=== PATIENT | female | born 1975 | race Caucasian/White ===

== ENCOUNTER 2021-12-18 18:19 | Emergency (ER) | payer OTHER, MEDICAID ==
[~2021-12-18] VITALS: Ht 152.4 cm; Wt 90.7 kg
[2021-12-18 18:29] VITALS: BP_SYST 123
--- NOTE | 2021-12-18 18:35 | NUR ---
BIB FAMILY WITH C/C OF PASSING OUT. PT STATED SHE HAD APPROXIMATELY 20 EPISODES OF DIARRHEA THAT STARTED THIS AM. WHILE SITTING ON TOILET PT REPORTS DIZZINESS AND SEEING BLACK AND THEN PASSED OUT, THEN PT SAT UP AGAIN AND PASSED OUT AGAIN. PT REPORTS HITTING THE FLOOR WITH HEAD. PRESENTS WITH CONTUSION TO FOREHEAD. REPORTS NAUSEA AND DIZZINESS WITHOUT EMESIS. PRESENTS WITH ABRASIONS TO BILATERAL KNEES. PT PLACED IN WAITING AREA.
--- NOTE | 2021-12-18 18:45 | NUR ---
DR. WELCH ASSESSED PT IN TRIAGE ROOM.
[2021-12-18 19:12] LABS: BASOPHILS % (AUTO) 0.3 % (0.0-2.0); EOSINOPHILS % (AUTO) 0.1 % (0.0-4.0); HEMATOCRIT 45.6 % (36-48); HEMOGLOBIN 15.5 g/dL (12.0-16.0); LYMPHOCYTES # (AUTO) 0.6 K/uL (1.0-5.5); LYMPHOCYTES % (AUTO) 5.3 % (20.5-51.5); MEAN CORPUSCULAR HEMOGLOBIN 30 pg (27-31); MEAN CORPUSCULAR HGB CONC 34 % (32-36); MEAN CORPUSCULAR VOLUME 87 fL (79.0-98.0); MONOCYTES # (AUTO) 0.4 K/uL (0.0-1.0); NEUTROPHILS # (AUTO) 9.9 K/uL (1.8-7.7); NEUTROPHILS % (AUTO) 90.3 % (40.0-70.0); PLATELET COUNT (AUTO) 347 K/uL (130-430); RED BLOOD CELL COUNT(AUTO) 5.22 MIL/uL (4.2-6.2); RED CELL DISTRIBUTION WIDTH 13.7 % (9.0-15.0); WHITE BLOOD COUNT (AUTO) 10.9 K/uL (4.8-10.8)
[2021-12-18 19:15] LABS: CALCIUM 9.4 mg/dL (8.4-11.0); CREATININE 0.96 mg/dL (0.55-1.30); POTASSIUM 4.2 mmol/L (3.5-5.1)
[2021-12-18 19:21] LABS: ALBUMIN 4.1 g/dL (3.4-4.8); TOTAL BILIRUBIN 0.7 mg/dL (0.0-1.0)
[2021-12-18] MEDS ORDERED: NACL 0.9% 1,000 ML IV ONE (19:30)
[2021-12-18] MEDS ORDERED: DICY10CA13 PO (23:22)
--- NOTE | 2021-12-18 23:28 | NUR ---
Patient given written and verbal discharge instructions and verbalizes understanding. ER MD discussed with patient the results and treatment provided. Patient in stable condition. ID arm band removed. IV catheter removed intact and dressing applied, no active bleeding. Rx of DICOCLOMINE given. Patient educated on pain management and to follow up with PMD. Pain Scale . Opportunity for questions provided and answered. Medication side effect fact sheet provided.
== END 2021-12-18 23:28 | disposition home or self-care (01) ==
LOC: SED 18:19
DX: R55 Syncope and collapse (principal); R19.7 Diarrhea, unspecified; Z79.899 Other long term (current) drug therapy
CPT/HCPCS: 36415; 70450-TC; 73560-TC; 76376; 80053; 81025; 85025; 93005; 99285